=== PATIENT | male | born 1940 | race Hispanic/Latino ===

== ENCOUNTER 2016-08-06 10:55 | Day surgery (SDC) | payer MEDICARE ==
[2016-08-04 08:43] VITALS: BMI 22.2
[2016-08-06 11:31] LABS: GLUCOSE,POC 185 mg/dL (65-110)
[2016-08-06] MEDS ORDERED: Midazolam 2 MG/2 ML VIAL ONE (14:03)
[2016-08-06] MEDS ORDERED: Iodixanol 320 MG/ML 100 ML BOTTLE IV ONE (14:04)
[2016-08-06] MEDS ORDERED: Iodixanol 320 MG/ML 200 ML BOTTLE IV ONE (14:04)
--- NOTE | 2016-08-06 15:45 | CP.SDSHP ---
Same Day Surgery H & P - History Proposed Procedure: please see enclosed office notes - Allergies Allergies: Allergies Penicillins Allergy (Intermediate, Verified 08/04/16 08:42) RASH - Physical Exam Vital Signs: Vital Signs 08/06/16 10:58 Temperature 97.9 F Pulse Rate 76 Respiratory 20 Rate Blood Pressure 189/89 H O2 Sat by Pulse 97 Oximetry Short Stay Discharge - Short Stay Discharge Admitting Diagnosis/Reason for Visit: PAD Disposition: HOME/ ROUTINE
[2016-08-06] MEDS ORDERED: Sodium Chloride 0.45% 1,000 ML IV SCH (16:00)
[2016-08-06] MEDS ORDERED: Sodium Chloride 0.45% 1,000 ML IV ONE (16:30)
--- NOTE | 2016-08-06 16:31 | OP ---
PROCEDURE DATE: 08/06/2016 PERFORMING PHYSICIAN: Diane Breen MD. PROCEDURE PERFORMED: Abdominal aortography with bilateral iliofemoral runoff, bilateral lower extremity angiography. INDICATIONS: Right lower extremity claudication. COMPLICATIONS: None. HISTORY: As follows: This patient is a 76-year-old male with a past medical history of coronary artery disease, status post coronary bypass grafting, peripheral vascular disease with previous stent of the right common iliac artery , who has progressive claudication of the right lower extremity. The patient did well after peripheral vascular intervention a few years ago, up until about 2 months ago when he noted rapidly progressive claudication which now limits him to one block. Ankle brachial index was severely abnormal. He is referred for angiography. DESCRIPTION OF PROCEDURE: As follows: After obtaining informed consent, the patient was prepped and draped in usual sterile fashion. Left groin was anesthetized with 2% lidocaine solution. A 5-Belarusian sheath was inserted into the left common femoral artery via modified Seldinger technique. Abdominal aortography was performed. Bilateral iliofemoral runoff was performed. All catheters were then removed and manual pressure was applied to achieve hemostasis. FINDINGS: Bilateral renal arteries arise normally and are free of significant atherosclerosis. There is a small infrarenal abdominal aortic aneurysm. The proximal right common iliac artery has been previously stented. The stent is widely patent. The left common iliac artery has mild disease. There is mild diffuse disease throughout the bilateral external iliac arteries. In the left leg, there is mild disease of the left common femoral artery. The origin of the profunda femoralis has mild disease. The left superficial femoral artery is occluded 100% in the mid to distal portion. The vessel reconstitutes at the tibioperoneal branch and supplies predominantly single vessel runoff to the left foot. In the right leg, there is a heavily calcified 95% plaque within the distal right common femoral artery. This is proximal to the right profunda femoralis. The right superficial femoral artery is occluded 100%. The vessel reconstitutes at the level of the mid to distal popliteal artery and there is single vessel runoff to the right foot. CONCLUSION: Widely patent stent in the right common iliac artery. Progressive severe stenosis of the right common femoral artery proximal to the right profunda femoralis. Bilateral superficial femoral artery occlusions with single vessel runoff bilaterally. PLAN: I had an extensive discussion with the patient in regards to his angiographic findings. The patient has developed progressive occlusive disease of the right common femoral artery. This is proximal to the profunda femoralis. Although an endovascular approach can be attempted, there is concern that if there is distal embolization or a compromise of flow to the profunda femoralis, that the patient will have severe compromise in distal perfusion of the right lower extremity. Therefore, the best possible option is surgical evaluation with right common femoral endarterectomy. A profundoplasty can also be performed intraoperatively if necessary. The patient expresses understanding with my recommendations. I will consult Dr. Kurt Cohen for surgical evaluation. Diane Breen MD cc: [id number] TT: 08/06/2016 16:31:29 sn MTDD
[2016-08-06 18:57] VITALS: BP 161/66; PULSE 62; RESP 18; TEMP 98; O2SAT 100
== END 2016-08-06 19:02 | disposition home or self-care (01) ==
LOC: C.CATHLAB 10:55
PROVIDERS: ATTEND Internal Medicine Cardiovascular Disease
DX: I70.213 Atherosclerosis of native arteries of extremities with intermittent claudication, bilateral legs (principal); I70.92 Chronic total occlusion of artery of the extremities

== ENCOUNTER 2016-08-24 06:38 | Inpatient (IN) | payer MEDICARE ==
[2016-08-04 08:42] VITALS: BMI 22.2
[2016-08-24] MEDS ORDERED: Vancomycin 1 gm/D5W 200 ml 1 GM/200 ML BAG IVPB ONE (07:53)
[2016-08-24] MEDS ORDERED: Etomidate 20 mg/10ml Inj IV ONE (07:54)
[2016-08-24] MEDS ORDERED: Lactated Ringer's 1,000 ML IV ONE ×2 (08:00→10:30)
[2016-08-24] MEDS ORDERED: Bacitracin 50,000 UNIT in Sodium Chloride 0.9% Irrig 1,000 ML IR SCH (08:00)
[2016-08-24] MEDS ORDERED: Midazolam 2 MG/2 ML VIAL ONE (08:07)
[2016-08-24] MEDS ORDERED: Succinylcholine Chloride 20 mg/ml Syr (5 ml) IV ONE (08:07)
[2016-08-24] MEDS ORDERED: Rocuronium 10 mg/ml (5 ml) ONE (08:07)
[2016-08-24] MEDS ORDERED: Lidocaine Hydrochloride 5 ML INJ ONE (08:08)
[2016-08-24] MEDS ORDERED: ePHEDrine 50 mg/ml Inj ONE ×2 (08:29→10:59)
[2016-08-24] MEDS ORDERED: Thrombin Topical 20,000 Intl Units Spray Kit TOP ONE (09:04)
[2016-08-24] MEDS ORDERED: Esmolol 100 mg/10ml Inj IV ONE (10:28)
[2016-08-24] MEDS ORDERED: HYDROmorphone 0.5 mg/0.5 ml ISec IVP PRN (11:30)
[2016-08-24] MEDS ORDERED: Neostigmine Methylsulfate 3mg/3ml Syringe IV ONE (11:30)
[2016-08-24] MEDS ORDERED: Oxycodone/Acetaminophen 5/325 mg Tab PO PRN ×2 (11:51→12:02)
[2016-08-24] MEDS ORDERED: Morphine 4 MG/ML VIAL IVP PRN (11:51)
[2016-08-24] MEDS ORDERED: Lactated Ringer's 1,000 ML IV SCH (12:00)
--- NOTE | 2016-08-24 12:04 | OP ---
PROCEDURE DATE: 08/24/2016 PREOPERATIVE DIAGNOSIS: Severe claudication, right leg. PROCEDURE CARRIED OUT: Right common femoral artery endarterectomy with profundoplasty and patch adeola oplasty. SURGEON: Kurt Cohen Jr., MD TURNER OFF: Dr. Min, resident. ANESTHESIOLOGIST: Dr. Flores. INDICATIONS: The patient is an elderly male with history of valve replacement, heart bypass surgery, who presents with severe claudication of the right leg. The patient had previous right iliac artery stent placed, and had severe right common femoral artery occlusive disease. OPERATIVE FINDINGS: 1. There was a near occlusive plaque in the common femoral artery. 2. The endarterectomy was carried out from the calcified portion of the common femoral artery all th e way down into the branching of the profunda femoris artery. At the end of the procedure, we had ex cellent Doppler signals in the foot. PROCEDURE: The patient was given general anesthesia, intravenous antibiotics were given. A standard groin prep was carried out and placement of a Vi-Drape. An incision was made exposing the common, s uperficial, and profunda femoris arteries. This was very calcified, like a rock. After this was dis sected out to the soft portions beyond the profunda bifurcation and above the common femoral artery, we gave heparin, we clamped the vessels, we carried out a standard endarterectomy with clean endpoint s, and we placed a bovine pericardial patch on top of this. At the end of the procedure, we had exce llent flow through this area. Then, after obtaining very careful hemostasis for over an hour and not reversing the heparin, we then closed the wound with Monocryl and Vicryl sutures and skin clips and sutures. Blood loss for the procedure was 250 mL. The patient tolerated the procedure well. OPERATION CARRIED OUT: Right common femoral endarterectomy with profundoplasty and patch angioplasty . Kurt Cohen Jr., MD cc:Diane Breen MD 56 TT: 08/24/2016 12:03:39 ri
--- NOTE | 2016-08-24 12:08 | PCM.SURG1 ---
Surgeon's Initial Post Op Note - Surgeon's Notes Surgeon: Dr. Posey Assurance Auditor: Dr. oliveros Type of Anesthesia: General Endo Pre-Operative Diagnosis: occluded right common femoral artery, peripheral artery disease Operative Findings: moderate sized atherotic plaque Post-Operative Diagnosis: same Operation Performed: right femoral endarterectomy Specimen/Specimens Removed: artherotic plaque Estimated Blood Loss: EBL {In ML}: 250 Blood Products Given: N/A Drains Used: No Drains Post-Op Condition: Good Date of Surgery/Procedure: 08/24/16 Time of Surgery/Procedure: 12:07
[2016-08-24] MEDS ORDERED: Nitroglycerin 2% Ointment Foilpak UD TOP PRN (13:43)
--- NOTE | 2016-08-24 17:09 | CP.PCM.CON ---
History of Present Illness - History of Present Illness History of Present Illness: ICU Consult note - PGY-1 This is a 76 yo M with PMH significant for DM, HTN, PVD, valve replacement, CAD with triple bypass that is s/p right common femoral artery endarterectomy with profundoplasty and patch angioplasty. Pt tolerated the procedure well. Per surgery, there was some post-operative bleeding and they requested that pt be observed in the ICU. Pt has no complaints at this time. Denies fevers, chills, chest pain, sob, nausea, vomiting, numbness or tingling. Review of Systems - Review of Systems All systems: reviewed and no additional remarkable complaints except Past Patient History - Past Medical History & Family History Past Medical History?: Yes - Past Social History Smoking Status: Former Smoker - CARDIAC Hx Cardiac Disorders: Yes (CAD, progressive claudication) Hx Congestive Heart Failure: Yes (10 years ago) Hx Hypercholesterolemia: Yes Hx Hypertension: Yes Hx Peripheral Vascular Disease: Yes (pain and burning in right leg) Other/Comment: pad - RENAL Hx Chronic Kidney Disease: No - ENDOCRINE/METABOLIC Hx Endocrine Disorders: Yes Hx Diabetes Mellitus Type 2: Yes (Diet and control) - HEMATOLOGICAL/ONCOLOGICAL Hx Blood Transfusions: Yes (POSS. WITH CARDIAC BYPASS?-PT. NOT SURE) - MUSCULOSKELETAL/RHEUMATOLOGICAL Hx Falls: No - PSYCHIATRIC Hx Substance Use: No - SURGICAL HISTORY Hx Surgeries: Yes Hx Angiogram: Yes (right stent fem) Hx Angioplasty: Yes Hx Coronary Artery Bypass Graft: Yes (2006) Hx Open Heart Surgery: Yes (2006 bypass) Other/Comment: Partial excision of pancrease 62 years ago - ANESTHESIA Hx Anesthesia: Yes Hx Anesthesia Reactions: No Hx Malignant Hyperthermia: No Meds Allergies/Adverse Reactions: Allergies Allergy/AdvReac Type Severity Reaction Status Date / Time Penicillins Allergy Intermediate RASH Verified 08/04/16 08:42 - Medications Medications: Current Medications Acetaminophen (Tylenol 325mg Tab) 650 mg PO Q6H PRN PRN Reason: Fever >100.4 F Aspirin (Ecotrin) 81 mg PO DAILY [facility] Carvedilol (Coreg) 12.5 mg PO BID [facility] Docusate Sodium (Colace) 100 mg PO BID PRN PRN Reason: Constipation Enalapril Maleate (Vasotec) 20 mg PO DAILY [facility] Famotidine (Pepcid) 20 mg IVP DAILY [facility] Heparin Sodium (Porcine) (Heparin) 5,000 units SC Q12 [facility] Lactated Ringer's (Lactated Ringer's) 1,000 mls @ 115 mls/hr IV .[id number] [facility] Vancomycin HCl/Dextrose (Vancocin) 500 mg in 100 mls @ 67 mls/hr IVPB Q12H [facility] Stop: 08/25/16 21:30 Morphine Sulfate (Morphine) 4 mg IVP Q4H PRN PRN Reason: Pain, severe (8-10) Nitroglycerin (Nitro-Bid 2% Oint) 1 ea TOP Q8 PRN PRN Reason: Other SBP>180 Ondansetron HCl (Zofran Inj) 4 mg IVP Q6H PRN PRN Reason: Nausea/Vomiting Oxycodone/Acetaminophen (Percocet 5/325 Mg Tab) 1 tab PO Q4H PRN PRN Reason: Pain, moderate (4-7) Stop: 08/27/16 11:52 Oxycodone/Acetaminophen (Percocet 5/325 Mg Tab) 2 tab PO Q4H PRN PRN Reason: Pain, severe (8-10) Stop: 08/27/16 12:03 Rosuvastatin Calcium (Crestor) 20 mg PO HS [facility] Physical Exam - Constitutional Appears: Well, Non-toxic, No Acute Distress - Head Exam Head Exam: ATRAUMATIC, NORMOCEPHALIC - Eye Exam Eye Exam: Normal appearance Pupil Exam: PERRL - ENT Exam ENT Exam: Mucous Membranes Moist - Respiratory Exam Respiratory Exam: Clear to Auscultation Bilateral, NORMAL BREATHING PATTERN - Cardiovascular Exam Cardiovascular Exam: +S1, +S2 - GI/Abdominal Exam GI & Abdominal Exam: Normal Bowel Sounds, Soft - Exam Additional comments: Bandages over incision site. No strike through bleeding. C/D/I - Extremities Exam Extremities exam: Positive for: normal capillary refill Additional comments: B/L feet warm and dry - Neurological Exam Neurological exam: Alert, Oriented x3 - Skin Skin Exam: Dry, Warm Results - Vital Signs Recent Vital Signs: Last Vital Signs Temp 97.5 F L 08/24/16 16:00 Pulse 76 08/24/16 16:00 Resp 18 08/24/16 16:41 BP 161/83 H 08/24/16 16:00 Pulse Ox 99 08/24/16 16:41 - Labs Labs: Laboratory Results - last 24 hr 08/24/16 07:19 Blood Type A POSITIVE Antibody Screen Negative Assessment & Plan - Assessment and Plan (Free Text) Assessment: This is a 76 yo M with PMH significant for DM, HTN, PVD, valve replacement, CAD with triple bypass that is s/p right common femoral artery endarterectomy with profundoplasty and patch angioplasty. Plan: Neuro: AAOx3 Pulm: No acute issues CV: Hypertensive, starting home meds. Continue to monitor and nitro-bid PRN. ASA starting tomorrow GI: Liquid diet per surgery in case pt needs to go back to OR due to bleeding Renal: Follow up morning labs. Making urine Endo: No acute issues, f/u morning labs Heme: Monitor for bleeding at incision site. ID: No acute issues. F/U AM labs DVT ppx - heparin starting tomorrow GI ppx - pepcid starting tomorrow
--- NOTE | 2016-08-24 18:24 | CP.PCM.CON ---
History of Present Illness - History of Present Illness History of Present Illness: I was asked to see patient by Dr. Cohen. Patient is a 76 year old male with PMH CAD s/p CABG, PAD with previous right common iliac artery stent who has severe claudication of the right leg. The patient did well after right common iliac artery stenting. The patient had bilateral SFA occlusions howevere was asymptoamtic and therefore managed with antiplatelet therapy. The patient developed progressive claudication of the right lower extremity. DRE was markedly abnormal. Angiography was performed revealing patent right common iliac artery stent, and severe right common femoral artery stenosis. The patient was referred to Dr. Cohen who performed right common femoral endarterectomy. He is seen in the ICU post op. He denies chest pain or dyspnea. Review of Systems - Constitutional Constitutional: absent: As Per HPI, Anorexia, Chills, Daytime Sleepiness, Excessive Sweating, Fatigue, Fever, Frequent Falls, Headache, Increased Appetite , Lethargy, Malaise, Night Sweats, Snoring, Sleep Apnea, Weight Gain, Weight Loss, Weakness, Other - EENT Eyes: absent: As Per HPI, Blind Spots, Blurred Vision, Change in Vision, Decreased Night Vision, Diplopia, Discharge, Dry Eye, Exophthalmos, Floaters, Irritation, Itchy Eyes, Loss of Peripheral Vision, Pain, Photophobia, Requires Corrective Lenses, Sees Flashes, Spots in Vision, Tunnel Vision, Other Visual Disturbances, Loss of Vision, Other Ears: absent: As Per HPI, Decreased Hearing, Ear Discharge, Ear Pain, Tinnitus, Abnormal Hearing, Disequilibrium, Dizziness, Other Nose/Mouth/Throat: absent: As Per HPI, Epistaxis, Nasal Congestion, Nasal Discharge, Nasal Obstruction, Nasal Trauma, Nose Pain, Post Nasal Drip, Sinus Pain, Sinus Pressure, Bleeding Gums, Change in Voice, Dental Pain, Dry Mouth, Dysphagia, Halitosis, Hoarsness, Lip Swelling, Mouth Lesions, Mouth Pain, Odynophagia, Sore Throat, Throat Swelling, Tongue Swelling, Facial Pain, Neck Pain, Neck Mass, Other - Cardiovascular Cardiovascular: absent: As Per HPI, Acrocyanosis, Chest Pain, Chest Pain at Rest , Chest Pain with Activity, Claudication, Diaphoresis, Dyspnea, Dyspnea on Exertion, Edema, Irregular Heart Rhythm, Pain Radiating to Arm/Neck/Jaw, Leg Edema, Leg Ulcers, Lightheadedness, Orthopnea, Palpitations, Paroxysmal Nocturnal Dyspnea, Pedal Edema, Radiating Pain, Rapid Heart Rate, Slow Heart Rate, Syncope, Other - Respiratory Respiratory: absent: As Per HPI, Cough, Dyspnea, Hemoptysis, Dyspnea on Exertion , Wheezing, Snoring, Stridor, Pain on Inspiration, Chest Congestion, Excessive Mucous Production, Change in Mucous Color, Pain with Coughing, Other - Gastrointestinal Gastrointestinal: absent: As Per HPI, Abdominal Pain, Belching, Bloating, Change in Bowel Habits, Change in Stool Character, Coffee Ground Emesis, Constipation, Cramping, Diarrhea, Dyspepsia, Dysphagia, Early Satiety, Excessive Flatus, Fecal Incontinence, Heartburn, Hematemesis, Hematochezia, Loose Stools, Melena, Nausea, Odynophagia, Temesmus, Vomiting, Other - Genitourinary Genitourinary: absent: As Per HPI, Change in Urinary Stream, Difficulty Urinating, Dysuria, Flank Pain, Hematuria, Pyuria, Nocturia, Urinary Incontinence, Urinary Frequency, Urinary Hesitance, Urinary Urgency, Voiding Freq/Small Amts, Freq UTI, Hx Renal/Bladder Calculi, Hx /Renal Surgery, Bladder Distension, Other - Musculoskeletal Musculoskeletal: absent: As Per HPI, Abnormal Gait, Arthralgias, Atrophy, Back Pain, Deformity, Joint Swelling, Limited Range of Motion, Loss of Height, Muscle Cramps, Muscle Weakness, Myalgias, Neck Pain, Numbness, Radiating Pain into Limb, Stiffness, Tingling, Other - Integumentary Integumentary: absent: As Per HPI, Acne, Alopecia, Bleeding Lesions, Change in Hair, Change in Nails, Change in Pigmentation, Changing Lesions, Dry Skin, Erythema, Furuncle, Hirsutism, Lesions, New Lesions, Non-Healing Lesions, Photosensitivity, Pruritus, Rash, Skin Pain, Skin Ulcer, Sores, Striae, Swelling , Unusual Bruising, Wounds, Jaundice, Other - Neurological Neurological: absent: As Per HPI, Abnormal Gait, Abnormal Hearing, Abnormal Movements, Abnormal Speech, Behavioral Changes, Burning Sensations, Confusion, Convulsions, Disequilibrium, Dizziness, Numbness, Focal Weakness, Frequent Falls , Headaches, Lack of Coordination, Loss of Vision, Memory Loss, Paresthesias, Radicular Pain, Restless Legs, Sensory Deficit, Syncope, Tingling, Tremor, Vertigo, Weakness, Other Visual Disturbances, Other - Psychiatric Psychiatric: absent: As Per HPI, Abnormal Sleep Pattern, Anhedonia, Anxiety, Auditory Hallucinations, Behavioral Changes, Change in Appetite, Change in Libido, Confusion, Depression, Difficulty Concentrating, Hallucinations, Homicidal Ideation, Hopelessness, Irritability, Memory Loss, Mood Swings, Panic Attacks, Paranoia, Suicidal Ideation, Visual Hallucinations, Tactile Hallucinations, Other - Endocrine Endocrine: absent: As Per HPI, Change in Body Appearance, Change in Libido, Cold Intolorance, Deepening of Voice, Excessive Sweating, Fatigue, Flushing, Heat Intolorance, Increase in Ring/Shoe/Hat Size, Palpitations, Polydipsia, Polyphagia, Polyuria, Other - Hematologic/Lymphatic Hematologic: absent: As Per HPI, Easy Bleeding, Easy Bruising, Lymphadenopathy, Other Past Patient History - Past Medical History & Family History Past Medical History?: Yes - Past Social History Smoking Status: Former Smoker - CARDIAC Hx Cardiac Disorders: Yes (CAD, progressive claudication) Hx Congestive Heart Failure: Yes (10 years ago) Hx Hypercholesterolemia: Yes Hx Hypertension: Yes Hx Peripheral Vascular Disease: Yes (pain and burning in right leg) Other/Comment: pad - RENAL Hx Chronic Kidney Disease: No - ENDOCRINE/METABOLIC Hx Endocrine Disorders: Yes Hx Diabetes Mellitus Type 2: Yes (Diet and control) - HEMATOLOGICAL/ONCOLOGICAL Hx Blood Transfusions: Yes (POSS. WITH CARDIAC BYPASS?-PT. NOT SURE) - MUSCULOSKELETAL/RHEUMATOLOGICAL Hx Falls: No - PSYCHIATRIC Hx Substance Use: No - SURGICAL HISTORY Hx Surgeries: Yes Hx Angiogram: Yes (right stent fem) Hx Angioplasty: Yes Hx Coronary Artery Bypass Graft: Yes (2006) Hx Open Heart Surgery: Yes (2006 bypass) Other/Comment: Partial excision of pancrease 62 years ago - ANESTHESIA Hx Anesthesia: Yes Hx Anesthesia Reactions: No Hx Malignant Hyperthermia: No Meds Allergies/Adverse Reactions: Allergies Allergy/AdvReac Type Severity Reaction Status Date / Time Penicillins Allergy Intermediate RASH Verified 08/04/16 08:42 - Medications Medications: Current Medications Acetaminophen (Tylenol 325mg Tab) 650 mg PO Q6H PRN PRN Reason: Fever >100.4 F Aspirin (Ecotrin) [address] [facility] Carvedilol (Coreg) 12.[address] [facility] Last Admin: 08/24/16 17:38 Dose: 12.5 mg Docusate Sodium (Colace) 100 mg PO BID PRN PRN Reason: Constipation Enalapril Maleate (Vasotec) [address] [facility] Famotidine (Pepcid) [address] [facility] Heparin Sodium (Porcine) (Heparin) 5,[address] [facility] Vancomycin HCl/Dextrose (Vancocin) 500 mg in 100 mls @ 67 mls/hr IVPB Q12H [facility] Stop: 08/25/16 21:30 Morphine Sulfate (Morphine) 4 mg IVP Q4H PRN PRN Reason: Pain, severe (8-10) Nitroglycerin (Nitro-Bid 2% Oint) 1 ea TOP Q8 PRN PRN Reason: Other SBP>180 Ondansetron HCl (Zofran Inj) 4 mg IVP Q6H PRN PRN Reason: Nausea/Vomiting Oxycodone/Acetaminophen (Percocet 5/325 Mg Tab) 1 tab PO Q4H PRN PRN Reason: Pain, moderate (4-7) Stop: 08/27/16 11:52 Oxycodone/Acetaminophen (Percocet 5/325 Mg Tab) 2 tab PO Q4H PRN PRN Reason: Pain, severe (8-10) Stop: 08/27/16 12:03 Rosuvastatin Calcium (Crestor) [address] [facility] Physical Exam - Constitutional Appears: Non-toxic - Head Exam Head Exam: NORMAL INSPECTION - Eye Exam Eye Exam: Normal appearance - ENT Exam ENT Exam: Mucous Membranes Moist - Neck Exam Neck exam: Positive for: Full Rom - Respiratory Exam Respiratory Exam: Decreased Breath Sounds - Cardiovascular Exam Cardiovascular Exam: REGULAR RHYTHM - GI/Abdominal Exam GI & Abdominal Exam: Normal Bowel Sounds - Rectal Exam Rectal Exam: Deferred - Extremities Exam Extremities exam: Positive for: full ROM. Negative for: pedal edema - Back Exam Back exam: NORMAL INSPECTION - Neurological Exam Neurological exam: Alert, Oriented x3 - Psychiatric Exam Psychiatric exam: Normal Affect - Skin Skin Exam: Normal Color Results - Vital Signs Recent Vital Signs: Last Vital Signs Temp 97.5 F L 08/24/16 16:00 Pulse 76 08/24/16 16:00 Resp 18 08/24/16 16:41 BP 170/90 H 08/24/16 17:38 Pulse Ox 99 08/24/16 16:41 - Labs Result Diagrams: 08/25/16 06:04 08/25/16 06:04 Labs: Laboratory Results - last 24 hr 08/24/16 07:19 Blood Type A POSITIVE Antibody Screen Negative - EKG Data EKG Interpreted by: Myself Assessment & Plan (1) PAD (peripheral artery disease) Assessment and Plan: s/p endarterectomy. continue medical therapy and post op care. Status: Acute (2) CAD (coronary artery disease) Assessment and Plan: no angina. Status: Acute (3) HTN (hypertension) Assessment and Plan: blood pressure control Status: Acute (4) Hypercholesterolemia Assessment and Plan: statin therapy Status: Acute
[2016-08-24] MEDS: Vancomycin 500mg/D5W 100 ml 500 MG/100 ML BAG IVPB SCH (20:42)
[2016-08-25 06:14] LABS: BASO % 0.3 % (0.0-2.0); EOS # 0.1 K/uL (0.0-0.7); EOS % 1.4 % (0.0-4.0); HEMATOCRIT 34.8 % (35.0-51.0); LYMPH # 0.8 K/uL (1.0-4.3); LYMPH % 9.3 % (20.0-40.0); MEAN CELL VOLUME 88.8 fL (80.0-94.0); MEAN CORPUSCULAR HEMOGLOBIN 30.3 pg (27.0-31.0); MEAN CORPUSCULAR HGB CONC 34.1 g/dL (33.0-37.0); MEAN PLATELET VOLUME 8.3 fL (7.2-11.7); MONO # 0.8 K/uL (0.0-0.8); MONO % 8.8 % (0.0-10.0); PLATELET COUNT 139 K/uL (130-400); RED CELL DISTRIBUTION WIDTH 13.3 % (11.5-14.5); WHITE BLOOD COUNT 8.7 K/uL (4.8-10.8)
[2016-08-25 06:30] LABS: INR 1.1
[2016-08-25 06:49] LABS: CHLORIDE 98 mmol/L (98-107); SODIUM 131 mmol/L (132-148)
[2016-08-25 06:51] LABS: ALB/GLOB RATIO 1.2 (1.0-2.1); ALKALINE PHOSPHATASE 40 U/L (38-126); AST/SGOT 33 U/L (17-59); BILIRUBIN,TOTAL 0.8 mg/dL (0.2-1.3); CARBON DIOXIDE 26 mmol/L (22-30); GFR AFRICAN-AMERICAN > 60; TOTAL PROTEIN 5.5 g/dL (6.3-8.3)
[2016-08-25 06:52] LABS: ALT/SGPT 33 U/L (21-72); BLOOD UREA NITROGEN 17 mg/dL (9-20); CALCIUM 8.2 mg/dl (8.6-10.4); GLUCOSE,RANDOM 146 mg/dL (75-110); MAGNESIUM 1.7 mg/dL (1.6-2.3)
[2016-08-25] MEDS: Vancomycin 500mg/D5W 100 ml 500 MG/100 ML BAG IVPB SCH ×2 (08:00→20:00)
[2016-08-25 08:51] LABS: BASOPHIL 1 % (0-2); EOSINOPHIL 1 % (0-4); NEUTROPHIL 87 % (50-75); TOTAL CELLS COUNTED 100
--- NOTE | 2016-08-25 10:23 | CP.PCM.PN ---
Subjective - Date & Time of Evaluation Date of Evaluation: 08/25/16 Time of Evaluation: 10:20 - Subjective Subjective: Surgery: Dr. Cohen Patient doing well this morning. He denies pain to the groin surgical site or pain to the right leg. Patient has been on bed rest overnight. Patient tolerated liquid diet. Per nursing no acute events noted. Objective - Vital Signs/Intake and Output Vital Signs (last 24 hours): Temp Pulse Resp BP Pulse Ox 97.3 F L 66 19 174/71 H 98 08/25/16 04:00 08/25/16 06:00 08/25/16 06:00 08/25/16 09:23 08/25/16 06:00 Intake and Output: 08/25/16 08/25/16 06:59 18:59 Intake Total 100 Output Total 540 Balance -440 - Medications Medications: Current Medications Acetaminophen (Tylenol 325mg Tab) 650 mg PO Q6H PRN PRN Reason: Fever >100.4 F Aspirin (Ecotrin) 81 mg PO DAILY [facility] Last Admin: 08/25/16 09:23 Dose: 81 mg Carvedilol (Coreg) 12.5 mg PO BID [facility] Last Admin: 08/25/16 09:23 Dose: 12.5 mg Docusate Sodium (Colace) 100 mg PO BID PRN PRN Reason: Constipation Last Admin: 08/25/16 09:24 Dose: 100 mg Enalapril Maleate (Vasotec) 20 mg PO DAILY [facility] Last Admin: 08/25/16 09:23 Dose: 20 mg Famotidine (Pepcid) 20 mg IVP DAILY [facility] Last Admin: 08/25/16 09:22 Dose: 20 mg Heparin Sodium (Porcine) (Heparin) 5,000 units SC Q12 [facility] Last Admin: 08/25/16 09:22 Dose: 5,000 units Vancomycin HCl/Dextrose (Vancocin) 500 mg in 100 mls @ 67 mls/hr IVPB Q12H [facility] Stop: 08/25/16 21:30 Last Admin: 08/24/16 20:42 Dose: 67 mls/hr Morphine Sulfate (Morphine) 4 mg IVP Q4H PRN PRN Reason: Pain, severe (8-10) Nitroglycerin (Nitro-Bid 2% Oint) 1 ea TOP Q8 PRN PRN Reason: Other SBP>180 Last Admin: 08/24/16 19:40 Dose: 1 ea Ondansetron HCl (Zofran Inj) 4 mg IVP Q6H PRN PRN Reason: Nausea/Vomiting Oxycodone/Acetaminophen (Percocet 5/325 Mg Tab) 1 tab PO Q4H PRN PRN Reason: Pain, moderate (4-7) Stop: 08/27/16 11:52 Oxycodone/Acetaminophen (Percocet 5/325 Mg Tab) 2 tab PO Q4H PRN PRN Reason: Pain, severe (8-10) Stop: 08/27/16 12:03 Rosuvastatin Calcium (Crestor) 20 mg PO HS [facility] Last Admin: 08/24/16 22:16 Dose: 20 mg - Labs Labs: 08/25/16 06:04 08/25/16 06:04 PT 12.2 SECONDS (9.7-12.2) 08/25/16 06:04 INR 1.1 08/25/16 06:04 APTT 27 SECONDS (21-34) 08/25/16 06:04 - Constitutional Appears: Non-toxic, No Acute Distress - Head Exam Head Exam: ATRAUMATIC, NORMOCEPHALIC - Eye Exam Eye Exam: EOMI - ENT Exam ENT Exam: Mucous Membranes Moist - Respiratory Exam Respiratory Exam: NORMAL BREATHING PATTERN. absent: Respiratory Distress - Cardiovascular Exam Cardiovascular Exam: REGULAR RHYTHM. absent: Tachycardia - GI/Abdominal Exam GI & Abdominal Exam: Soft. absent: Distended, Tenderness - Extremities Exam Additional comments: signal appreciated on doppler of the DP and PT pulses on the right, LE is warm. Pressure dressing is CDI on the right groin site. - Neurological Exam Neurological Exam: Alert, Awake - Psychiatric Exam Psychiatric exam: Normal Affect, Normal Mood - Skin Skin Exam: Dry, Intact, Normal Color, Warm Assessment and Plan - Assessment and Plan (Free Text) Assessment: 76 y/o male s/p right femoral endarterectomy POD1 Plan: -advance to [facility] -ok to transfer out of ICU -d/c lockhart -d/c arterial line -ok to be OOB - PT eval -appreciate consultants -leave dressing in place and reinforce prn -further recs per Dr. Noel Vera PGY1
[2016-08-25 11:18] VITALS: O2SAT 100
--- NOTE | 2016-08-25 15:10 | CP.CCUPN ---
<Jefe Roche - Last Filed: 08/25/16 15:29> CCU Subjective - Physician Review Subjective (Free Text): 08/25/16 15:07 PGY-1 progress note Pt seen and examined at bedside. No overnight events. Denies any bleeding or pain. Denies fevers, chills, chest pain, sob, nausea or vomiting. Critical Care Time Spent (in minutes): 35 CCU Objective - Vital Signs / Intake & Output Vital Signs (Last 4 hours): Vital Signs Temp Pulse Resp BP Pulse Ox 08/25/16 12:00 97.5 F L 74 13 165/71 H 100 Intake and Output (Last 8hrs): Intake & Output 08/25/16 08/25/16 08/25/16 06:59 14:59 22:59 Intake Total 0 360 Output Total 390 250 Balance -390 110 Intake: Intake, IV Amount 0 100 Left Forearm 0 Right Wrist 0 100 Oral 260 Output: Urine 390 250 Urethral (Junior) 390 250 Other: # Bowel Movements 0 - Physical Exam Head: Positive for: Atraumatic, Normocephalic Pupils: Positive for: PERRL Mouth: Positive for: Moist Mucous Membranes Respiratory/Chest: Positive for: Clear to Auscultation, Good Air Exchange Cardiovascular: Positive for: Normal S1, S2 Abdomen: Positive for: Normal Bowel Sounds. Negative for: Tenderness, Distention Upper Extremity: Positive for: NORMAL PULSES, Neurovascularly Intact Lower Extremity: Positive for: NORMAL PULSES, Neurovascularly Intact, Other ( incision site covered with bandages, no strike through bleeding. ) Neurological: Positive for: Speech Normal, Motor Func Grossly Intact Skin: Positive for: Warm, Dry Psychiatric: Positive for: Alert, Oriented x 3 - Medications Active Medications: Active Medications Generic Name Dose Route Start Last Admin Trade Name Freq PRN Reason Stop Dose Admin Acetaminophen 650 mg 08/24/16 11:51 Tylenol 325mg Tab PO Q6H PRN Fever >100.4 F Aspirin 81 mg 08/25/16 10:00 08/25/16 09:23 Ecotrin PO 81 mg DAILY [facility] Administration Carvedilol 12.5 mg 08/24/16 18:00 08/25/16 09:23 Coreg PO 12.5 mg BID [facility] Administration Docusate Sodium 100 mg 08/24/16 11:51 08/25/16 09:24 Colace PO 100 mg BID PRN Administration Constipation Enalapril Maleate 20 mg 08/25/16 10:00 08/25/16 09:23 Vasotec PO 20 mg DAILY [facility] Administration Famotidine 20 mg 08/25/16 10:00 08/25/16 09:22 Pepcid IVP 20 mg DAILY [facility] Administration Heparin Sodium (Porcine) 5,000 units 08/25/16 10:00 08/25/16 09:22 Heparin SC 5,000 units Q12 [facility] Administration Vancomycin HCl/Dextrose 500 mg in 100 mls @ 67 mls/hr 08/24/16 20:00 20:42 Vancocin IVPB 08/25/16 21:30 67 mls/hr Q12H [facility] Administration Morphine Sulfate 4 mg 08/24/16 11:51 Morphine IVP Q4H PRN Pain, severe (8-10) Nitroglycerin 1 ea 08/24/16 13:43 08/24/16 19:40 Nitro-Bid 2% Oint TOP 1 ea Q8 PRN Administration Other SBP>180 Ondansetron HCl 4 mg 08/24/16 15:00 Zofran Inj IVP Q6H PRN Nausea/Vomiting Oxycodone/Acetaminophen 1 tab 08/24/16 11:51 Percocet 5/325 Mg Tab PO 08/27/16 11:52 Q4H PRN Pain, moderate (4-7) Oxycodone/Acetaminophen 2 tab 08/24/16 12:02 Percocet 5/325 Mg Tab PO 08/27/16 12:03 Q4H PRN Pain, severe (8-10) Rosuvastatin Calcium 20 mg 08/24/16 22:00 08/24/16 22:16 Crestor PO 20 mg HS [facility] Administration - Patient Studies Lab Studies: Lab Studies 08/25/16 08/25/16 08/25/16 Range/Units 06:20 06:04 06:04 WBC (4.8-10.8) K/uL RBC (4.40-5.90) Mil/uL Hgb (12.0-18.0) g/dL Hct (35.0-51.0) % MCV (80.0-94.0) fL MCH (27.0-31.0) pg MCHC (33.0-37.0) g/dL RDW (11.5-14.5) % Plt Count (130-400) K/uL MPV (7.2-11.7) fL Neut % (Auto) (50.0-75.0) % Lymph % (Auto) (20.0-40.0) % [place] % (Auto) (0.0-10.0) % Eos % (Auto) (0.0-4.0) % Baso % (Auto) (0.0-2.0) % Neut # (1.8-7.0) K/uL Lymph # (1.0-4.3) K/uL [place] # (0.0-0.8) K/uL Eos # (0.0-0.7) K/uL Baso # (0.0-0.2) K/uL Neutrophils % (Manual) (50-75) % Band Neutrophils % (0-2) % Lymphocytes % (Manual) (20-40) % Monocytes % (Manual) (0-10) % Eosinophils % (Manual) (0-4) % Basophils % (Manual) (0-2) % Platelet Estimate (NORMAL) Hypochromasia (manual) Poikilocytosis (manual Anisocytosis (manual) [place] Cells PT 12.2 (9.7-12.2) SECONDS INR 1.1 APTT 27 (21-34) SECONDS Sodium 131 L (132-148) mmol/L Potassium 4.0 (3.6-5.2) mmol/L Chloride 98 (98-107) mmol/L Carbon Dioxide 26 (22-30) mmol/L Anion Gap 11 (10-20) BUN 17 (9-20) mg/dL Creatinine 0.7 L (0.8-1.5) MG/DL Est GFR ( Amer) > 60 Est GFR (Non-Af Amer) > 60 POC Glucose (mg/dL) 150 H (65-110) mg/dL Random Glucose 146 H (75-110) mg/dL Calcium 8.2 L (8.6-10.4) mg/dl Magnesium 1.7 (1.6-2.3) mg/dL Total Bilirubin 0.8 (0.2-1.3) mg/dL AST 33 (17-59) U/L ALT 33 (21-72) U/L Alkaline Phosphatase 40 (38-126) U/L Total Protein 5.5 L (6.3-8.3) g/dL Albumin 3.0 L (3.5-5.0) g/dL Globulin 2.5 (2.2-3.9) gm/dL Albumin/Globulin Ratio 1.2 (1.0-2.1) 08/25/16 Range/Units 06:04 WBC 8.7 (4.8-10.8) K/uL RBC 3.91 L (4.40-5.90) Mil/uL Hgb 11.9 L D (12.0-18.0) g/dL Hct 34.8 L (35.0-51.0) % MCV 88.8 (80.0-94.0) fL MCH 30.3 (27.0-31.0) pg MCHC 34.1 (33.0-37.0) g/dL RDW 13.3 (11.5-14.5) % Plt Count 139 (130-400) K/uL MPV 8.3 (7.2-11.7) fL Neut % (Auto) 80.2 H (50.0-75.0) % Lymph % (Auto) 9.3 L (20.0-40.0) % [place] % (Auto) 8.8 (0.0-10.0) % Eos % (Auto) 1.4 (0.0-4.0) % Baso % (Auto) 0.3 (0.0-2.0) % Neut # 7.0 (1.8-7.0) K/uL Lymph # 0.8 L (1.0-4.3) K/uL [place] # 0.8 (0.0-0.8) K/uL Eos # 0.1 (0.0-0.7) K/uL Baso # 0.0 (0.0-0.2) K/uL Neutrophils % (Manual) 87 H (50-75) % Band Neutrophils % 1 (0-2) % Lymphocytes % (Manual) 6 L (20-40) % Monocytes % (Manual) 4 (0-10) % Eosinophils % (Manual) 1 (0-4) % Basophils % (Manual) 1 (0-2) % Platelet Estimate Normal (NORMAL) Hypochromasia (manual) Slight Poikilocytosis (manual Slight Anisocytosis (manual) Slight [place] Cells Slight PT (9.7-12.2) SECONDS INR APTT (21-34) SECONDS Sodium (132-148) mmol/L Potassium (3.6-5.2) mmol/L Chloride (98-107) mmol/L Carbon Dioxide (22-30) mmol/L Anion Gap (10-20) BUN (9-20) mg/dL Creatinine (0.8-1.5) MG/DL Est GFR ( Amer) Est GFR (Non-Af Amer) POC Glucose (mg/dL) (65-110) mg/dL Random Glucose (75-110) mg/dL Calcium (8.6-10.4) mg/dl Magnesium (1.6-2.3) mg/dL Total Bilirubin (0.2-1.3) mg/dL AST (17-59) U/L ALT (21-72) U/L Alkaline Phosphatase (38-126) U/L Total Protein (6.3-8.3) g/dL Albumin (3.5-5.0) g/dL Globulin (2.2-3.9) gm/dL Albumin/Globulin Ratio (1.0-2.1) Laboratory Results - last 24 hr 08/25/16 08/25/16 08/25/16 06:04 06:04 06:04 WBC 8.7 RBC 3.91 L Hgb 11.9 L D Hct 34.8 L MCV 88.8 MCH 30.3 MCHC 34.1 RDW 13.3 Plt Count 139 MPV 8.3 Neut % (Auto) 80.2 H Lymph % (Auto) 9.3 L [place] % (Auto) 8.8 Eos % (Auto) 1.4 Baso % (Auto) 0.3 Neut # 7.0 Lymph # 0.8 L [place] # 0.8 Eos # 0.1 Baso # 0.0 Neutrophils % (Manual) 87 H Band Neutrophils % 1 Lymphocytes % (Manual) 6 L Monocytes % (Manual) 4 Eosinophils % (Manual) 1 Basophils % (Manual) 1 Platelet Estimate Normal Hypochromasia (manual) Slight Poikilocytosis (manual Slight Anisocytosis (manual) Slight [place] Cells Slight PT 12.2 INR 1.1 APTT 27 Sodium 131 L Potassium 4.0 Chloride 98 Carbon Dioxide 26 Anion Gap 11 BUN 17 Creatinine 0.7 L Est GFR ( Amer) > 60 Est GFR (Non-Af Amer) > 60 POC Glucose (mg/dL) Random Glucose 146 H Calcium 8.2 L Magnesium 1.7 Total Bilirubin 0.8 AST 33 ALT 33 Alkaline Phosphatase 40 Total Protein 5.5 L Albumin 3.0 L Globulin 2.5 Albumin/Globulin Ratio 1.2 08/25/16 06:20 WBC RBC Hgb Hct MCV MCH MCHC RDW Plt Count MPV Neut % (Auto) Lymph % (Auto) [place] % (Auto) Eos % (Auto) Baso % (Auto) Neut # Lymph # [place] # Eos # Baso # Neutrophils % (Manual) Band Neutrophils % Lymphocytes % (Manual) Monocytes % (Manual) Eosinophils % (Manual) Basophils % (Manual) Platelet Estimate Hypochromasia (manual) Poikilocytosis (manual Anisocytosis (manual) [place] Cells PT INR APTT Sodium Potassium Chloride Carbon Dioxide Anion Gap BUN Creatinine Est GFR ( Amer) Est GFR (Non-Af Amer) POC Glucose (mg/dL) 150 H Random Glucose Calcium Magnesium Total Bilirubin AST ALT Alkaline Phosphatase Total Protein Albumin Globulin Albumin/Globulin Ratio Review of Systems - Review of Systems All systems: reviewed and no additional remarkable complaints except Critical Care Progress Note - Nutrition Nutrition: Nutrition Category Date Time Status Heart Healthy Diet [DIET] Diets 08/25/16 Lunch Active Assessment/Plan - Assessment and Plan (Free Text) Assessment: This is a 76 yo M with PMH significant for DM, HTN, PVD, valve replacement, CAD with triple bypass that is s/p right common femoral artery endarterectomy with profundoplasty and patch angioplasty. Pt has no bleeding and stable. Transferred out of ICU and management per primary team. <Jonathan Allen S - Last Filed: 08/25/16 17:44> CCU Subjective - Physician Review Critical Care Time Spent (in minutes): 0 CCU Objective - Vital Signs / Intake & Output Vital Signs (Last 4 hours): Vital Signs BP 08/25/16 17:40 135/41 L Intake and Output (Last 8hrs): Intake & Output 08/25/16 08/25/16 08/25/16 06:59 14:59 22:59 Intake Total 0 360 Output Total 390 250 Balance -390 110 Intake: Intake, IV Amount 0 100 Left Forearm 0 Right Wrist 0 100 Oral 260 Output: Urine 390 250 Urethral (Junior) 390 250 Other: # Bowel Movements 0 - Medications Active Medications: Active Medications Generic Name Dose Route Start Last Admin Trade Name Freq PRN Reason Stop Dose Admin Acetaminophen 650 mg 08/24/16 11:51 Tylenol 325mg Tab PO Q6H PRN Fever >100.4 F Aspirin 81 mg 08/25/16 10:00 08/25/16 09:23 Ecotrin PO 81 mg DAILY [facility] Administration Carvedilol 12.5 mg 08/24/16 18:00 08/25/16 17:40 Coreg PO 12.5 mg BID [facility] Administration Docusate Sodium 100 mg 08/24/16 11:51 08/25/16 17:40 Colace PO 100 mg BID PRN Administration Constipation Enalapril Maleate 20 mg 08/25/16 10:00 08/25/16 09:23 Vasotec PO 20 mg DAILY [facility] Administration Famotidine 20 mg 08/25/16 10:00 08/25/16 09:22 Pepcid IVP 20 mg DAILY [facility] Administration Heparin Sodium (Porcine) 5,000 units 08/25/16 10:00 08/25/16 09:22 Heparin SC 5,000 units Q12 [facility] Administration Vancomycin HCl/Dextrose 500 mg in 100 mls @ 67 mls/hr 08/24/16 20:00 20:42 Vancocin IVPB 08/25/16 21:30 67 mls/hr Q12H [facility] Administration Morphine Sulfate 4 mg 08/24/16 11:51 Morphine IVP Q4H PRN Pain, severe (8-10) Nitroglycerin 1 ea 08/24/16 13:43 08/24/16 19:40 Nitro-Bid 2% Oint TOP 1 ea Q8 PRN Administration Other SBP>180 Ondansetron HCl 4 mg 08/24/16 15:00 Zofran Inj IVP Q6H PRN Nausea/Vomiting Oxycodone/Acetaminophen 1 tab 08/24/16 11:51 Percocet 5/325 Mg Tab PO 08/27/16 11:52 Q4H PRN Pain, moderate (4-7) Oxycodone/Acetaminophen 2 tab 08/24/16 12:02 Percocet 5/325 Mg Tab PO 08/27/16 12:03 Q4H PRN Pain, severe (8-10) Rosuvastatin Calcium 20 mg 08/24/16 22:00 08/24/16 22:16 Crestor PO 20 mg HS [facility] Administration - Patient Studies Lab Studies: Lab Studies 08/25/16 08/25/16 08/25/16 Range/Units 06:20 06:04 06:04 WBC (4.8-10.8) K/uL RBC (4.40-5.90) Mil/uL Hgb (12.0-18.0) g/dL Hct (35.0-51.0) % MCV (80.0-94.0) fL MCH (27.0-31.0) pg MCHC (33.0-37.0) g/dL RDW (11.5-14.5) % Plt Count (130-400) K/uL MPV (7.2-11.7) fL Neut % (Auto) (50.0-75.0) % Lymph % (Auto) (20.0-40.0) % [place] % (Auto) (0.0-10.0) % Eos % (Auto) (0.0-4.0) % Baso % (Auto) (0.0-2.0) % Neut # (1.8-7.0) K/uL Lymph # (1.0-4.3) K/uL [place] # (0.0-0.8) K/uL Eos # (0.0-0.7) K/uL Baso # (0.0-0.2) K/uL Neutrophils % (Manual) (50-75) % Band Neutrophils % (0-2) % Lymphocytes % (Manual) (20-40) % Monocytes % (Manual) (0-10) % Eosinophils % (Manual) (0-4) % Basophils % (Manual) (0-2) % Platelet Estimate (NORMAL) Hypochromasia (manual) Poikilocytosis (manual Anisocytosis (manual) [place] Cells PT 12.2 (9.7-12.2) SECONDS INR 1.1 APTT 27 (21-34) SECONDS Sodium 131 L (132-148) mmol/L Potassium 4.0 (3.6-5.2) mmol/L Chloride 98 (98-107) mmol/L Carbon Dioxide 26 (22-30) mmol/L Anion Gap 11 (10-20) BUN 17 (9-20) mg/dL Creatinine 0.7 L (0.8-1.5) MG/DL Est GFR ( Amer) > 60 Est GFR (Non-Af Amer) > 60 POC Glucose (mg/dL) 150 H (65-110) mg/dL Random Glucose 146 H (75-110) mg/dL Calcium 8.2 L (8.6-10.4) mg/dl Magnesium 1.7 (1.6-2.3) mg/dL Total Bilirubin 0.8 (0.2-1.3) mg/dL AST 33 (17-59) U/L ALT 33 (21-72) U/L Alkaline Phosphatase 40 (38-126) U/L Total Protein 5.5 L (6.3-8.3) g/dL Albumin 3.0 L (3.5-5.0) g/dL Globulin 2.5 (2.2-3.9) gm/dL Albumin/Globulin Ratio 1.2 (1.0-2.1) 08/25/16 Range/Units 06:04 WBC 8.7 (4.8-10.8) K/uL RBC 3.91 L (4.40-5.90) Mil/uL Hgb 11.9 L D (12.0-18.0) g/dL Hct 34.8 L (35.0-51.0) % MCV 88.8 (80.0-94.0) fL MCH 30.3 (27.0-31.0) pg MCHC 34.1 (33.0-37.0) g/dL RDW 13.3 (11.5-14.5) % Plt Count 139 (130-400) K/uL MPV 8.3 (7.2-11.7) fL Neut % (Auto) 80.2 H (50.0-75.0) % Lymph % (Auto) 9.3 L (20.0-40.0) % [place] % (Auto) 8.8 (0.0-10.0) % Eos % (Auto) 1.4 (0.0-4.0) % Baso % (Auto) 0.3 (0.0-2.0) % Neut # 7.0 (1.8-7.0) K/uL Lymph # 0.8 L (1.0-4.3) K/uL [place] # 0.8 (0.0-0.8) K/uL Eos # 0.1 (0.0-0.7) K/uL Baso # 0.0 (0.0-0.2) K/uL Neutrophils % (Manual) 87 H (50-75) % Band Neutrophils % 1 (0-2) % Lymphocytes % (Manual) 6 L (20-40) % Monocytes % (Manual) 4 (0-10) % Eosinophils % (Manual) 1 (0-4) % Basophils % (Manual) 1 (0-2) % Platelet Estimate Normal (NORMAL) Hypochromasia (manual) Slight Poikilocytosis (manual Slight Anisocytosis (manual) Slight [place] Cells Slight PT (9.7-12.2) SECONDS INR APTT (21-34) SECONDS Sodium (132-148) mmol/L Potassium (3.6-5.2) mmol/L Chloride (98-107) mmol/L Carbon Dioxide (22-30) mmol/L Anion Gap (10-20) BUN (9-20) mg/dL Creatinine (0.8-1.5) MG/DL Est GFR ( Amer) Est GFR (Non-Af Amer) POC Glucose (mg/dL) (65-110) mg/dL Random Glucose (75-110) mg/dL Calcium (8.6-10.4) mg/dl Magnesium (1.6-2.3) mg/dL Total Bilirubin (0.2-1.3) mg/dL AST (17-59) U/L ALT (21-72) U/L Alkaline Phosphatase (38-126) U/L Total Protein (6.3-8.3) g/dL Albumin (3.5-5.0) g/dL Globulin (2.2-3.9) gm/dL Albumin/Globulin Ratio (1.0-2.1) Laboratory Results - last 24 hr 08/25/16 08/25/16 08/25/16 06:04 06:04 06:04 WBC 8.7 RBC 3.91 L Hgb 11.9 L D Hct 34.8 L MCV 88.8 MCH 30.3 MCHC 34.1 RDW 13.3 Plt Count 139 MPV 8.3 Neut % (Auto) 80.2 H Lymph % (Auto) 9.3 L [place] % (Auto) 8.8 Eos % (Auto) 1.4 Baso % (Auto) 0.3 Neut # 7.0 Lymph # 0.8 L [place] # 0.8 Eos # 0.1 Baso # 0.0 Neutrophils % (Manual) 87 H Band Neutrophils % 1 Lymphocytes % (Manual) 6 L Monocytes % (Manual) 4 Eosinophils % (Manual) 1 Basophils % (Manual) 1 Platelet Estimate Normal Hypochromasia (manual) Slight Poikilocytosis (manual Slight Anisocytosis (manual) Slight [place] Cells Slight PT 12.2 INR 1.1 APTT 27 Sodium 131 L Potassium 4.0 Chloride 98 Carbon Dioxide 26 Anion Gap 11 BUN 17 Creatinine 0.7 L Est GFR ( Amer) > 60 Est GFR (Non-Af Amer) > 60 POC Glucose (mg/dL) Random Glucose 146 H Calcium 8.2 L Magnesium 1.7 Total Bilirubin 0.8 AST 33 ALT 33 Alkaline Phosphatase 40 Total Protein 5.5 L Albumin 3.0 L Globulin 2.5 Albumin/Globulin Ratio 1.2 08/25/16 06:20 WBC RBC Hgb Hct MCV MCH MCHC RDW Plt Count MPV Neut % (Auto) Lymph % (Auto) [place] % (Auto) Eos % (Auto) Baso % (Auto) Neut # Lymph # [place] # Eos # Baso # Neutrophils % (Manual) Band Neutrophils % Lymphocytes % (Manual) Monocytes % (Manual) Eosinophils % (Manual) Basophils % (Manual) Platelet Estimate Hypochromasia (manual) Poikilocytosis (manual Anisocytosis (manual) [place] Cells PT INR APTT Sodium Potassium Chloride Carbon Dioxide Anion Gap BUN Creatinine Est GFR ( Amer) Est GFR (Non-Af Amer) POC Glucose (mg/dL) 150 H Random Glucose Calcium Magnesium Total Bilirubin AST ALT Alkaline Phosphatase Total Protein Albumin Globulin Albumin/Globulin Ratio Critical Care Progress Note - Nutrition Nutrition: Nutrition Category Date Time Status Heart Healthy Diet [DIET] Diets 08/25/16 Lunch Active Attending/Attestation - Attestation I have personally seen and examined this patient.: Yes I have fully participated in the care of the patient.: Yes I have reviewed all pertinent clinical information: Yes Notes (Text): 08/25/16 17:43 Patient seen and examined. Case discussed with STAFF in the morning rounds. Stable for transfer to floor
[2016-08-26 06:22] LABS: BASO # 0.1 K/uL (0.0-0.2); BASO % 0.6 % (0.0-2.0); EOS # 0.3 K/uL (0.0-0.7); EOS % 3.2 % (0.0-4.0); LYMPH # 1.5 K/uL (1.0-4.3); LYMPH % 15.1 % (20.0-40.0); MEAN CELL VOLUME 88.3 fL (80.0-94.0); MEAN CORPUSCULAR HEMOGLOBIN 30.6 pg (27.0-31.0); MEAN CORPUSCULAR HGB CONC 34.7 g/dL (33.0-37.0); MEAN PLATELET VOLUME 8.2 fL (7.2-11.7); MONO # 1.1 K/uL (0.0-0.8); MONO % 10.5 % (0.0-10.0); NRBC % 0.1 % (0.0-2.0); RED CELL DISTRIBUTION WIDTH 13.3 % (11.5-14.5)
[2016-08-26 06:23] LABS: CHLORIDE 99 mmol/L (98-107); POTASSIUM 3.9 mmol/L (3.6-5.2); SODIUM 133 mmol/L (132-148)
[2016-08-26 06:26] LABS: BLOOD UREA NITROGEN 22 mg/dL (9-20); CARBON DIOXIDE 25 mmol/L (22-30); GFR AFRICAN-AMERICAN > 60; GLUCOSE,RANDOM 173 mg/dL (75-110)
[2016-08-26 06:27] LABS: CALCIUM 8.5 mg/dl (8.6-10.4)
[2016-08-26 08:28] VITALS: PULSE 74; RESP 16; TEMP 98.2
[2016-08-26 09:49] VITALS: BP 128/54
--- NOTE | 2016-08-26 17:09 | CP.PCM.DIS ---
Provider - Provider Date of Admission: 08/24/16 06:38 Attending physician: Kurt Cohen Jr, MD Consults: Dr. Vicenta Breen Time Spent in preparation of Discharge (in minutes): 40 Diagnosis - Discharge Diagnosis (1) PAD (peripheral artery disease) Status: Acute Comment: Patient s/p right femoral endarterectomy with DP and PT signal on doppler. Hospital Course - Lab Results Lab Results: Micro Results 08/24/16 17:00 Naris MRSA Culture (Admit) - Final MRSA NOT DETECTED Most Recent Lab Values WBC 10.0 K/uL (4.8-10.8) 08/26/16 06:13 RBC 4.08 Mil/uL (4.40-5.90) L 08/26/16 06:13 Hgb 12.5 g/dL (12.0-18.0) 08/26/16 06:13 Hct 36.0 % (35.0-51.0) 08/26/16 06:13 MCV 88.3 fL (80.0-94.0) 08/26/16 06:13 MCH 30.6 pg (27.0-31.0) 08/26/16 06:13 MCHC 34.7 g/dL (33.0-37.0) 08/26/16 06:13 RDW 13.3 % (11.5-14.5) 08/26/16 06:13 Plt Count 151 K/uL (130-400) 08/26/16 06:13 MPV 8.2 fL (7.2-11.7) 08/26/16 06:13 Neut % (Auto) 70.6 % (50.0-75.0) 08/26/16 06:13 Lymph % (Auto) 15.1 % (20.0-40.0) L 08/26/16 06:13 Tillman % (Auto) 10.5 % (0.0-10.0) H 08/26/16 06:13 Eos % (Auto) 3.2 % (0.0-4.0) 08/26/16 06:13 Baso % (Auto) 0.6 % (0.0-2.0) 08/26/16 06:13 Neut # 7.0 K/uL (1.8-7.0) 08/26/16 06:13 Lymph # 1.5 K/uL (1.0-4.3) 08/26/16 06:13 Tillman # 1.1 K/uL (0.0-0.8) H 08/26/16 06:13 Eos # 0.3 K/uL (0.0-0.7) 08/26/16 06:13 Baso # 0.1 K/uL (0.0-0.2) 08/26/16 06:13 Neutrophils % (Manual) 87 % (50-75) H 08/25/16 06:04 Band Neutrophils % 1 % (0-2) 08/25/16 06:04 Lymphocytes % (Manual) 6 % (20-40) L 08/25/16 06:04 Monocytes % (Manual) 4 % (0-10) 08/25/16 06:04 Eosinophils % (Manual) 1 % (0-4) 08/25/16 06:04 Basophils % (Manual) 1 % (0-2) 08/25/16 06:04 Platelet Estimate Normal (NORMAL) 08/25/16 06:04 Hypochromasia (manual) Slight 08/25/16 06:04 Poikilocytosis (manual Slight 08/25/16 06:04 Anisocytosis (manual) Slight 08/25/16 06:04 Marifer Cells Slight 08/25/16 06:04 PT 12.2 SECONDS (9.7-12.2) 08/25/16 06:04 INR 1.1 08/25/16 06:04 APTT 27 SECONDS (21-34) 08/25/16 06:04 Sodium 133 mmol/L (132-148) 08/26/16 06:13 Potassium 3.9 mmol/L (3.6-5.2) 08/26/16 06:13 Chloride 99 mmol/L (98-107) 08/26/16 06:13 Carbon Dioxide 25 mmol/L (22-30) 08/26/16 06:13 Anion Gap 13 (10-20) 08/26/16 06:13 BUN 22 mg/dL (9-20) H 08/26/16 06:13 Creatinine 0.8 MG/DL (0.8-1.5) 08/26/16 06:13 Est GFR ( Amer) > 60 08/26/16 06:13 Est GFR (Non-Af Amer) > 60 08/26/16 06:13 POC Glucose (mg/dL) 150 mg/dL (65-110) H 08/25/16 06:20 Random Glucose 173 mg/dL (75-110) H 08/26/16 06:13 Calcium 8.5 mg/dl (8.6-10.4) L 08/26/16 06:13 Magnesium 1.7 mg/dL (1.6-2.3) 08/25/16 06:04 Total Bilirubin 0.8 mg/dL (0.2-1.3) 08/25/16 06:04 AST 33 U/L (17-59) 08/25/16 06:04 ALT 33 U/L (21-72) 08/25/16 06:04 Alkaline Phosphatase 40 U/L (38-126) 08/25/16 06:04 Total Protein 5.5 g/dL (6.3-8.3) L 08/25/16 06:04 Albumin 3.0 g/dL (3.5-5.0) L 08/25/16 06:04 Globulin 2.5 gm/dL (2.2-3.9) 08/25/16 06:04 Albumin/Globulin Ratio 1.2 (1.0-2.1) 08/25/16 06:04 Blood Type A POSITIVE 08/24/16 07:19 Antibody Screen Negative 08/24/16 07:19 - Hospital Course Hospital Course: Patient is a 76 yo M with PMHx significant for DM, HTN, PVD, valve replacement, CAD with triple bypass. Patient had right common femoral artery endarterectomy with profundoplasty and patch angioplasty on 08/24/16. Patient tolerated procedure well and has no pain post-op. Patient is ambulating well and denies numbness or tingling. Patient was able to tolerate diet post-op. Patient was evaluated by ticket dispenser changer Dr. Breen who recommended continued medical management of cholesterol, HTN, CAD and PAD post-operatively. Patient was seen and evaluated by surgical team post-operatively and had DP and PT signal by doppler of right leg. Patient is to follow up with Dr. Cohen on 09/04/16. Patient is advised on regular activity, no lifting heavy weights, no hot tubs or sauna. Patient advised to elevate the leg. Patient can take a shower tomorrow and change right femoral dressing after showering Discharge Exam - Head Exam Head Exam: ATRAUMATIC, NORMOCEPHALIC - Eye Exam Eye Exam: EOMI - ENT Exam ENT Exam: Mucous Membranes Moist - Respiratory Exam Respiratory Exam: NORMAL BREATHING PATTERN - Cardiovascular Exam Cardiovascular Exam: REGULAR RHYTHM - GI/Abdominal Exam GI & Abdominal Exam: Soft. absent: Tenderness - Extremities Exam Additional comments: DP and PT signal by doppler, leg warm to touch - Neurological Exam Neurological exam: Alert - Psychiatric Exam Psychiatric exam: Normal Affect - Skin Skin Exam: Warm Discharge Plan - Follow Up Plan Condition: GOOD Disposition: HOME/ ROUTINE Instructions: Peripheral Artery Disease (DC), Peripheral Artery Disease (GEN) Additional Instructions: Patient is advised on regular activity, no lifting heavy weights, no hot tubs or sauna. Patient can take a shower tomorrow and change right femoral dressing after showering. Referrals: Kurt Cohen Jr., MD [Staff Provider] - 1 Week
== END 2016-08-26 15:40 | disposition home or self-care (01) | DRG 254 ==
LOC: C.9S 06:38 → C.9I 11:52
PROVIDERS: ADMIT Surgery Vascular Surgery; ATTEND Surgery Vascular Surgery
PROC: 047K0ZZ Dilation of Right Femoral Artery, Open Approach (ICD-10-PCS; 2016-08-24)
PROC: 04UK0JZ Supplement Right Femoral Artery with Synthetic Substitute, Open Approach (ICD-10-PCS; 2016-08-24)
PROC: 04CK0ZZ Extirpation of Matter from Right Femoral Artery, Open Approach (ICD-10-PCS; principal; 2016-08-24 07:45)
DX: I70.211 Atherosclerosis of native arteries of extremities with intermittent claudication, right leg (principal); I11.0 Hypertensive heart disease with heart failure; E11.51 Type 2 diabetes mellitus with diabetic peripheral angiopathy without gangrene; I50.9 Heart failure, unspecified; I73.9 Peripheral vascular disease, unspecified; E78.00 Pure hypercholesterolemia, unspecified; I25.10 Atherosclerotic heart disease of native coronary artery without angina pectoris; Z95.1 Presence of aortocoronary bypass graft; Z95.2 Presence of prosthetic heart valve; Z87.891 Personal history of nicotine dependence